=== PATIENT | female | born 2005 | race Caucasian/White ===

== ENCOUNTER 2023-03-22 16:59 | Inpatient (IN) | payer OTHER, SELFPAY ==
[2023-03-22] VITALS (48 sets, daily range): BP systolic 95–117; BP diastolic 53–89; PULSE 55–95; RESP 14–16; TEMP 36.3–36.7; O2SAT 98–100; BMI 25.9
[2023-03-22] MEDS: LACTATED RINGERS 1,000 ML 125 ML IV CONT (18:08)
[2023-03-22 18:09] LABS: Basophils Percent Auto 0.3 % (0.2-1.2); Eosinophils Percent Auto 0.3 % (0-4.4); Hematocrit 39.7 % (37.0-47.0); Hemoglobin 13.3 g/dL (12.0-15.0); Immature Granulocyte Absolute 0.09 K/mm3 (0.00-0.031); Immature Granulocyte Percent A 0.8 % (0-0.5); Lymphocytes Absolute Auto 3.06 K/mm3 (0.9-3.2); Lymphocytes Percent Auto 25.6 % (18.3-44.2); Mean Corpuscular HGB Conc 33.5 g/dl (32-36); Mean Corpuscular Hemoglobin 29.1 pg (26-34); Mean Corpuscular Volume 86.9 fl (80-100); Mean Platelet Volume 10.5 fl (7.4-10.4); Monocytes Absolute Auto 0.5 K/mm3 (0.1-0.6); Neutrophils Absolute Auto 8.2 K/mm3 (1.3-6.7); Platelet Count Result 176 k/mm3 (150-375); Red Blood Count 4.57 M/mm3 (4.2-5.4); Red Cell Distribution Width 13.9 % (11.5-14.5); White Blood Count 11.9 K/mm3 (4.5-10.0)
[2023-03-22] MEDS: OXYTOCIN 30 UNITS/NS 500 ML 30 UNITS/500 ML BAG 6 UNITS IV CONT (18:09)
--- NOTE | 2023-03-22 18:11 | LDADM ---
This patient, Danae Wahl March, was admitted to Labor/Delivery/Recovery 104 on 03/22/23 at 16:59. Plans for labor, pain management and were discussed with patient. Patient/family oriented to hospital policies and general routines including ID bracelet, bed and alarms, visiting hours, pain management, procedures, bathroom and other care routines, personal items, smoking policy, room service/diet and guest tray routines, security routines, and visiting hours. Patient/Family are encouraged to report perceived risks to care and to ask questions if they do not understand what they are told or what they should do. See OBIX for further documentation.
--- NOTE | 2023-03-22 19:43 | PM.IMHP ---
H&P: HPI History of Present Illness Date/Time: 03/22/23 19:43 Chief Complaint: SROM Narrative: Danae is a 17yo G1 at 36.2 who presented with SROM. GBS unknown. complicated by anxiety and depression, no meds and MJ use earlier in . 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 On my exam, 4cm, with septum going up to the cervix, cervix 4cm, footling breech, confirmed with US. Review of Systems Review of Systems: All systems reviewed & are unremarkable except as noted in HPI and below PMFSH Family History Family History (Updated 03/21/23 @ 13:41 by Talya Germain RN) Other Patient denies significant medical history Social History Social History Smoking status: Never smoker Substance use: never Lack of Transportation: No Lack of Food: Never True Current Housing: I Have Housing Concerned About Future Housing: No Difficulty Paying Gas/Electric Bills: No Difficulty Paying for Meds: No Currently Unemployed: YES Education: Grade School Difficulty w/ Childcare or Family Care: No Spiritual care concerns: No Meds Home Medications and Allergies Home Medications Medication Instructions Recorded Confirmed Type prenat.vits,ester,cwm-vdqm-ededh 1 tablet PO DAILY 03/21/23 03/21/23 History Allergies Allergy/AdvReac Type Severity Reaction Status Date / Time No Known Allergies Allergy Unknown Unverified 06/29/10 07:43 Vital Signs Vital Signs - 24 hr 03/22/23 18:10 03/22/23 18:00 03/22/23 18:38 Temperature 97.9 F Pulse Rate 86 Blood Pressure 112/66 Oxygen Delivery Room Air 03/22/23 19:30 Temperature Pulse Rate 95 Blood Pressure 117/71 Oxygen Delivery Exam Const: General: no acute distress Resp: Effort & Inspection: normal respiratory effort Auscultation: clear to auscultation bilaterally Cardio: Rate: regular rate Rhythm: regular rhythm GI: GI Palp: Yes Soft to palpation Extrem: General: normal to inspection H&P: Results Labs Labs: Short CBC 03/22/23 Range/Units 17:56 WBC 11.9 H (4.5-10.0) K/mm3 Hgb 13.3 (12.0-15.0) g/dL Hct 39.7 (37.0-47.0) % Plt Count 176 (150-375) k/mm3 Assessment and Plan Assessment and plan (1) SROM (spontaneous rupture of membranes): Status: Acute (2) Longitudinal vaginal septum: Code(s): Q52.129 - Other and unspecified longitudinal vaginal septum Status: Acute (3) Footling breech presentation: Code(s): O32.8XX0 - Maternal care for other malpresentation of fetus, not applicable or unspecified Status: Acute Plan FHT category 1 SROM, GBS unknown discussed vaginal septum since footling breech, need to proceed with CS. Discussed RBA, consented, questions answered. Will proceed dayrl. Ancef and erythromycin Anesthesia notified per RN
--- NOTE | 2023-03-22 19:48 | WPDHPUPDATE1 ---
History and Physical Update Update Date/Time: 03/22/23 19:48 History and Physical has been reviewed, including an updated exam of the patient. There are NO changes in the patient's condition. Risks, benefits, and alternatives have been discussed and questions answered. Patient agrees to proceed with procedure.
--- NOTE | 2023-03-22 20:11 | WPDANESEPPF ---
Anes - Initial Pre Proc Eval Procedure: Operation Date: 03/22/23 19:50 Proposed Procedures p Section - Nikkie Oliva MD Date/Time: 03/22/23 20:11 Surgeon: Nikkie Oliva MD Pre Op Diagnosis: Labor Patient Data Age: 17 Gender: F Height: 1.6 m Weight: 66.5 kg Last Vital Signs Temp 36.6 C 03/22/23 18:00 Pulse 95 03/22/23 19:30 BP 117/71 03/22/23 19:30 O2 Del Method Room Air 03/22/23 18:10 Allergies Allergy/AdvReac Type Severity Reaction Status Date / Time No Known Allergies Allergy Unknown Unverified 06/29/10 07:43 Home Medications Medication Instructions Recorded Confirmed Type prenat.vits,ester,bud-esql-tlyal 1 tablet PO DAILY 03/21/23 03/21/23 History Laboratory Tests 03/22/23 03/22/23 03/22/23 17:56 17:56 17:56 WBC 11.9 K/mm3 H K/mm3 (4.5-10.0) RBC 4.57 M/mm3 M/mm3 (4.2-5.4) Hgb 13.3 g/dL g/dL (12.0-15.0) Hct 39.7 % % (37.0-47.0) MCV 86.9 fl fl (80-100) MCH 29.1 pg pg (26-34) MCHC 33.5 g/dl g/dl (32-36) RDW 13.9 % % (11.5-14.5) Plt Count 176 k/mm3 k/mm3 (150-375) MPV 10.5 fl H fl (7.4-10.4) Immature Gran % (Auto) 0.8 % H % (0-0.5) Neut % (Auto) 69.0 % % (45.5-73.1) Lymph % (Auto) 25.6 % % (18.3-44.2) [place] % (Auto) 4.0 % % (2.6-8.5) Eos % (Auto) 0.3 % % (0-4.4) Baso % (Auto) 0.3 % % (0.2-1.2) Lymph # (Auto) 3.06 K/mm3 K/mm3 (0.9-3.2) [place] # (Auto) 0.5 K/mm3 K/mm3 (0.1-0.6) Eos # (Auto) 0.0 K/mm3 K/mm3 (0-0.3) Baso # (Auto) 0.0 K/mm3 K/mm3 (0.0-0.1) Abs Immat Gran (auto) 0.09 K/mm3 H K/mm3 (0.00-0.031) Absolute Neuts (auto) 8.2 K/mm3 H K/mm3 (1.3-6.7) Absolute Nucleated RBC 0.0 K/mm3 K/mm3 (0.0-0.012) Nucleated RBC % 0.0 % % (0.0-0.2) RPR Pending Blood Type O Positive Antibody Screen Negative Patient hx anesthesia problems: none Family hx anesthesia problems: none Results Review: All pre-operative results and documents have been reviewed as part of the pre-operative evaluation. [facility] Past Medical History Medical History (Updated 03/22/23 @ 20:12 by Hayden Archer MD) Asthma Family History Family History Other Patient denies significant medical history Social History Social History Smoking status: Never smoker Substance use: never Lack of Transportation: No Lack of Food: Never True Current Housing: I Have Housing Concerned About Future Housing: No Difficulty Paying Gas/Electric Bills: No Difficulty Paying for Meds: No Currently Unemployed: YES Education: Grade School Difficulty w/ Childcare or Family Care: No Spiritual care concerns: No Anes - Eval Final PreProcedure Day of Procedure 03/22/23 20:11 Patient weight: overweight Heart: regular rate and rhythm Lungs: clear to auscultation Airway: Mallampati scale class II Neurological: alert and oriented Last oral intake: 2 hours (clears) ASA classification: II Emergent: yes Anesthetic plan: proceed Anesthesia type and monitoring: regional spinal and standard monitoring Results Review: All pre-operative results and documents have been reviewed as part of the pre-operative evaluation. Informed Consent: The patient's anesthetic plan and its attendant risks and benefits were discussed with the patient/family/POA. Questions were solicited and answers provided to the satisfaction of the patient/family/POA.
--- NOTE | 2023-03-22 21:02 | PM.OBPRVD ---
OB - Delivery Note Procedure Delivery date: 03/22/23 Procedure: Procedures Operation Date: 03/22/23 19:50 <No data on this case meets the specified criteria> Primary low transverse section Events: Breech Presentation and Other (longitudinal vaginal septum) Route of delivery: Specimen: Yes (placenta) Quantitative Blood Loss (ml): 505 Anesthesia type: Spinal Disposition: Floor Complications: none Narrative: The patient was taken to the OR and received spinal anesthesia. She was placed in dorsal supine position with left lateral tilt. SCDs and wilson were placed. She was prepped and draped in the normal sterile fashion. A Pfannensteil skin incision was made and carried through to the underlying layer of fascia. The fascia was incised in the midline and then extended laterally using Ca scissors. The muscles were in the midline and the peritoneum was entered bluntly. The peritoneal incision was extended inferiorly and superiorly with care to avoid the bladder. The bladder blade was then inserted, the vesicouterine peritoneum was grasped, incised with Metzenbaum scissors, and a bladder flap created. The bladder blade was reinserted. A low transverse uterine incision was made with a scalpel and extended bluntly. No fluid was noted at this time. One foot was presenting, but the breech was able to be brought to the incision and the baby was delivered easily in breech presentation. The baby's oropharynx was suctioned. The cord was clamped and cut and the infant was handed off. Cord blood was obtained and the placenta was then removed manually. The uterus was exteriorized. A moist lap sponge was used to curette the endometrium. The uterine incision was then closed with two layers of 0-Vicryl in a running, locking fashion. Good hemostasis was noted. The posterior cul de sac was irrigated with normal saline and cleared of all clot and debris. The uterus was returned to the abdomen. Both lateral gutters were then irrigated. The rectus muscles were inspected and found to be hemostatic. The fascia was reapproximated using 0-Vicryl in running fashion. The subcutaneous tissue was irrigated with normal saline and made hemostatic with Bovie electrocautery. The skin was then closed with absorbable jamar. Steri strips and a bandage were applied. The uterus was evacuated. The patient tolerated the procedure very well. All counts were correct. She was taken to the recovery room in good condition. Baby Date of : 03/22/23 Time of : 20:21 Weeks of gestation at delivery: 36 gender: Male Weight (pounds): 5 Weight (ounces): 15 presentation: breech (single footling) Placenta delivery description: Manual Removal Cord Vessel Description: 3 Vessels, Nuchal Cord and Clamped/Cut score one minute: 5 score five minutes: 9
[2023-03-22] MEDS: OXYTOCIN 30 UNITS/NS 500 ML 30 UNITS/500 ML BAG 125 UNITS IV CONT (22:17)
[2023-03-23] VITALS (7 sets, daily range): BP systolic 88–101; BP diastolic 47–63; PULSE 61–86; RESP 16; TEMP 36.7–37.4; O2SAT 97–98
[2023-03-23] MEDS: HYDROcodone/acetaminophen (*CRX) 5-325 MG TABLET 1 TAB PO ×4 (00:05→22:55)
[2023-03-23] MEDS: KETOROLAC 30 MG/ML VIAL (*BKC) IV PUSH (00:05)
[2023-03-23] MEDS: DEXTROSE 5%/0.45% SOD CHL 1,000 ML 125 ML IV CONT (01:49)
[2023-03-23 02:35] LABS: Basophils Percent Auto 0.2 % (0.2-1.2); Eosinophils Percent Auto 0.1 % (0-4.4); Hematocrit 30.7 % (37.0-47.0); Immature Granulocyte Absolute 0.06 K/mm3 (0.00-0.031); Immature Granulocyte Percent A 0.4 % (0-0.5); Lymphocytes Absolute Auto 2.17 K/mm3 (0.9-3.2); Mean Corpuscular HGB Conc 32.6 g/dl (32-36); Mean Corpuscular Hemoglobin 28.5 pg (26-34); Mean Corpuscular Volume 87.5 fl (80-100); Mean Platelet Volume 10.5 fl (7.4-10.4); Monocytes Absolute Auto 0.4 K/mm3 (0.1-0.6); Neutrophils Absolute Auto 10.9 K/mm3 (1.3-6.7); Neutrophils Percent Auto 80.3 % (45.5-73.1); Platelet Count Result 143 k/mm3 (150-375); Red Blood Count 3.51 M/mm3 (4.2-5.4); Red Cell Distribution Width 13.6 % (11.5-14.5); White Blood Count 13.5 K/mm3 (4.5-10.0)
--- NOTE | 2023-03-23 07:19 | P.PNOB_ITS ---
OB - PN: Subj Subjective Date/time seen: 03/23/23 07:19 Patient comments: no complaints and pain well controlled feeding status: breast and bottle feeding Narrative: POD 1 from primary CS. Doing well. Normal lochia. Tolerating PO. Alexander still in. OB - PN: Obj Data Labs 03/23/23 02:22 Labs: Laboratory Results - last 24 hr 03/22/23 03/23/23 17:56 02:22 WBC 11.9 H 13.5 H RBC 4.57 3.51 L Hgb 13.3 10.0 L D Hct 39.7 30.7 L MCV 86.9 87.5 MCH 29.1 28.5 MCHC 33.5 32.6 RDW 13.9 13.6 Plt Count 176 143 L MPV 10.5 H 10.5 H Immature Gran % (Auto) 0.8 H 0.4 Neut % (Auto) 69.0 80.3 H Lymph % (Auto) 25.6 16.0 L [place] % (Auto) 4.0 3.0 Eos % (Auto) 0.3 0.1 Baso % (Auto) 0.3 0.2 Lymph # (Auto) 3.06 2.17 [place] # (Auto) 0.5 0.4 Eos # (Auto) 0.0 0.0 Baso # (Auto) 0.0 0.0 Abs Immat Gran (auto) 0.09 H 0.06 H Absolute Neuts (auto) 8.2 H 10.9 H Absolute Nucleated RBC 0.0 0.0 Nucleated RBC % 0.0 0.0 Blood Type O Positive Antibody Screen Negative OB - PN A/P Plan day: 1 Plan: routine care Time Spent With Patient Time: Total time spent is greater than 50% in coordination of care (as documented) at patient's floor/unit and/or counseling patient: Exam Narrative: NAD abdomen soft, appropriately tender, incision bandaged Extremities nontender with 1+ edema
[2023-03-23] MEDS: DOCUSATE SODIUM 100 MG CAPSULE PO ×2 (10:25→15:40)
--- NOTE | 2023-03-23 10:29 | PC.NURSE ---
[id number] Introductions were made, then consulted with patient to assess needs related to after a request from the Primary RN. Mother led the conversation with her?plans to feed?her and the?experience so far. Resources provided for inpatient and outpatient services with the feeding sheet, mom/baby guide and name written on the white board. Mother voiced understanding of information and consents to assistance as her ([id number] wks) is sleeping skin to skin. Mother works well with her infant with encouragement and education. Encouraged understanding of the benefits of skin to skin (demonstrating unwrapping and placing upright on her chest), stimulating with massage touch, changing positions to encourage wakefulness, how to watch for early feeding cues, responsive feeding,hand expression, feeding on demand (aiming for 8-12 times in 24 hours, about every 2-3 hours), milk production, building/maintaining a milk supply, duration of feeding, signs of adequate intake/output and how to record on the feeding sheet. Discussed the late 's behavior and encouraged skin to skin, massage touch, with being assertive with active . Demonstrated 20 min of stimulating with position change, changing the infant's diaper, massage touch, and finger feeding hand expressed colostrum, then we reviewed positioning and ear, shoulder, hip alignment, supporting the breast to facilitate a deep latch, asymmetrical latch (off-center), leading with the chin with a big, open, wide gape and body close to mother. A few attempts were made, then infant latched optimally to the right breast in football position. Education given to mother of how to visualize suck/swallow ratios and listen for drinking at the breast. Father of baby was included on ways to encourage, support, and stimulate for active . Infant was able to maintain latch without discomfort to mother. Nipple care reviewed with optimal latch and good positioning. Reminding mother of comfort measures of healing with a warm and wet washcloth to rinse breast, then leave open to air-dry as needed. Reviewed good handwashing when or touching the breast/nipples to prevent infection. Resources used to facilitate learning were used with the tool, mom and baby guide. Mother voiced understanding of skin to skin, stimulating with massage touch, responsive feedings, hand expressed colostrum, talking to infant to encourage if it has been 2 -2.5 hours since the start of the last , to call if does not latch, or if there is discomfort with . Resources provided for inpatient/outpatient with the office number on the feeding sheet, name on the white board using the call light, and the mom/baby guide. Parents voiced understanding of information, demonstrated learning and will call if there is a request for assistance. Reported to the primary RN.
--- NOTE | 2023-03-23 10:47 | WPDANLDPN2 ---
Anes-Prog Note L&D Date/Time: 03/23/23 10:47 Comfortable throughout: section Neuraxial method: spinal Epidural/Spinal procedure site: clean & non-tender Neuro status: Neuro function grossly intact. wilson in place, will be taken out later today. Cardiovascular status: normal Respiratory status: normal Airway patency: baseline Mental status: baseline Post-Op hydration status: normal (wilson in place) Vital Signs: Last Vital Signs Temp 37.4 C 03/23/23 09:35 Pulse 76 03/23/23 09:35 Resp 16 03/23/23 09:35 BP 101/54 L 03/23/23 09:35 Pulse Ox 98 03/23/23 09:35 O2 Del Method Room Air 03/22/23 23:04 Pain score (VAS): 3 I/O: Intake & Output 03/22/23 03/23/23 03/23/23 23:59 07:59 15:59 Intake Total 440 Output Total 225 450 Balance -225 -10 Post-procedural complaints: none Patient feedback: Patient satisfied with anesthetic care.
--- NOTE | 2023-03-23 10:49 | WPDANLDNPN2 ---
Anes-Prog Note L&D-Neuraxial Date/Time: 03/23/23 10:49 Neuraxial medications: intrathecal PF morphine Opiod-related complaints: none Patient feedback: Patient satisfied with post-operative pain management.
[2023-03-23 13:48] LABS: Rapid Plasma Reagin Non-Reactive (NonReactive)
[2023-03-23] MEDS: MULTIVIT/MIN/PREN/FOL AC/IRON TABLET 1 TAB PO (15:40)
--- NOTE | 2023-03-23 15:48 | PC.NURSE ---
[id number] Infant's blood sugar was checked prior to session and resulted at 48mg/dl. Reviewed earlier learning and attempted to the left and right breast. Drops of hand expressed colostrum was finger fed to . Infant opens mouth and holds the mouth open or the nipple in the mouth the majority of the time. On the right breast latches optimally, takes a few suck, then holds the breast in the mouth. Reported to the primary RN that is not demonstrating effective at this time.
--- NOTE | 2023-03-23 15:52 | PC.NURSE ---
[id number] Blood sugar checked prior to session and resulted at 79mg/dl. Mother works well with her infant with encouragement. Reviewed working with infant, supporting breast and how to protect the nipples with an optimal deep latch, good positioning, and good hand washing. Several attempts were made to latch infant to the left breast. opens wide, then holds the nipple in the mouth. Reviewed positioning and alignment, supporting breast, off-centered (asymmetrical latch) and leading with the chin with big, open, wide gape. Infant latched optimally to the right breast in football position. Education given to mother of how to visualize suck/swallow ratios and listen for drinking at the breast. was able to maintain latch without discomfort to mother. Nipple care reviewed with optimal latch, good positioning and using clean hands when feeding her infant and touching her breast. Resources used to facilitate learning were used from the tool, mom and baby guide. Mother voiced understanding of the education shared, to call for assistance if the does not latch or if there is discomfort with . Reviewed the consult with Primary RN assessing the effective on the right breast.
[2023-03-23] MEDS: IBUPROFEN 600 MG TABLET PO (22:55)
[2023-03-24] MEDS: HYDROcodone/acetaminophen (*CRX) 5-325 MG TABLET 1 TAB PO ×3 (05:25→20:07)
[2023-03-24] MEDS: IBUPROFEN 600 MG TABLET PO ×3 (05:25→20:07)
[2023-03-24 07:30] VITALS: BP 97/50; PULSE 71; RESP 18; TEMP 36.7; O2SAT 98
--- NOTE | 2023-03-24 08:14 | PM.OBPNVD ---
OB - PN: Subj Subjective Date/time seen: 03/24/23 08:14 Patient comments: no complaints, pain well controlled, tolerating diet and flatus present OB - PN: Obj Data Labs 03/23/23 02:22 Labs: Laboratory Results - last 24 hr 03/22/23 17:56 RPR Non-reactive OB - PN A/P Plan day: 1 Comments: Post Op LTCS - no problems, routine recovery Time Spent With Patient Time: Total time spent is greater than 50% in coordination of care (as documented) at patient's floor/unit and/or counseling patient: Exam Const: General: cooperative, healthy appearing, comfortable and no acute distress Resp: Auscultation: no crackles, no rales, no rhonchi and no wheezes Cardio: Rhythm: regular rhythm Heart sounds: no click and no murmurs GI: Inspection: non-distended Auscultation: normal bowel sounds Extrem: General: normal to inspection, no pedal edema and no calf tenderness
[2023-03-24] MEDS: DOCUSATE SODIUM 100 MG CAPSULE PO ×2 (08:53→17:20)
[2023-03-24] MEDS: MULTIVIT/MIN/PREN/FOL AC/IRON TABLET 1 TAB PO (08:53)
[2023-03-24 20:00] VITALS: BP 101/61; PULSE 91; RESP 16; TEMP 36.6
[2023-03-25] MEDS: HYDROcodone/acetaminophen (*CRX) 5-325 MG TABLET 1 TAB PO ×2 (06:51→17:38)
[2023-03-25 07:00] VITALS: BP 118/70; PULSE 76; RESP 16; TEMP 37.1; O2SAT 94
--- NOTE | 2023-03-25 07:57 | PM.OBPNVD ---
OB - PN: Subj Subjective Date/time seen: 03/25/23 07:57 Patient comments: no complaints and pain well controlled baby status: doing well Narrative: Ped wants baby to stay re weight loss. OB - PN: Obj Data Labs 03/23/23 02:22 OB - PN A/P Plan day: 3 Plan: routine care Comments: Stay per pediatricians request Doing well circumcision done after consented. Time Spent With Patient Time: Total time spent is greater than 50% in coordination of care (as documented) at patient's floor/unit and/or counseling patient: Exam Narrative: NAD abdomen soft, appropriately tender, incision CDI Extremities nontender with 1+ edema
[2023-03-25] MEDS: MULTIVIT/MIN/PREN/FOL AC/IRON TABLET 1 TAB PO (09:20)
[2023-03-25] MEDS: DOCUSATE SODIUM 100 MG CAPSULE PO ×2 (09:20→17:37)
--- NOTE | 2023-03-25 14:25 | PC.NURSE ---
[phone] Consulted with patient to assess needs related to after a request to practice improving . Mother led conversation with her experience with feeding baby so far. Mother works well with her infant with encouragement. Reviewed working with infant, supporting breast and how to protect the nipples with an optimal deep latch, good positioning, and good hand washing. Reviewed the risks and benefits of supplementing with formula bottles and how to protect her milk supply. Encouraged understanding the benefits of skin to skin, responding to feeding cues, frequencies of feeding 8-12 times in 24 hours (approximately 2-3 hours), duration of feedings, milk production, intake/output feeding sheet and signs of adequate intake encouraging swallowing at the breast. Reviewed positioning and alignment, supporting breast, off-centered (asymmetrical latch) and leading with the chin with big, open, wide gape. Infant latched optimally to the right breast in football position. Education given to mother of how to visualize suck/swallow ratios and listen for drinking at the breast. Infant was able to maintain latch without discomfort to mother. Nipple care reviewed with optimal latch, good positioning and using clean hands when feeding her infant and touching her breast. Resources used to facilitate learning were used from the tool, mom and baby guide. Mother voiced understanding of the education shared, to call for assistance if the infant does not latch or if there is discomfort with . Reported to the primary RN. [phone] Consulted with patient to assess needs related to after a request for assistance. Mother led conversation with her experience with feeding baby so far. Mother works well with her with encouragement. Reviewed working with infant, supporting breast and how to protect the nipples with an optimal deep latch, good positioning, and good hand washing. Encouraged understanding the benefits of skin to skin, responding to feeding cues, frequencies of feeding 8-12 times in 24 hours (approximately 2-3 hours), duration of feedings, milk production, intake/output feeding sheet and signs of adequate intake encouraging swallowing at the breast. Reviewed positioning and alignment, supporting breast, off-centered (asymmetrical latch) and leading with the chin with big, open, wide gape. Attempted to latch infant to the left breast several times. Infant would suck 1-2 times, then detach. Nipple is dimpled and doesn't express colostrum with hand expression. Encourage infant to wake, feeding cues were visualized, then infant latched optimally to the right breast in cross cradle position with a towel rolled up under her breast. Education given to mother of how to visualize suck/swallow ratios and listen for drinking at the breast. was able to maintain latch without discomfort to mother. Nipple care reviewed with optimal latch, good positioning and using clean hands when feeding her infant and touching her breast. Resources used to facilitate learning were used from the tool, mom and baby guide. Mother voiced understanding of the education shared, to call for assistance if the infant does not latch or if there is discomfort with . Reported to the primary RN.
[2023-03-25] MEDS: IBUPROFEN 600 MG TABLET PO (17:37)
[2023-03-25 20:00] VITALS: BP 104/49; PULSE 93; RESP 16; O2SAT 98
[2023-03-26] MEDS: HYDROcodone/acetaminophen (*CRX) 5-325 MG TABLET 1 TAB PO (04:50)
[2023-03-26] MEDS: IBUPROFEN 600 MG TABLET PO (04:50)
[2023-03-26 07:50] VITALS: BP 102/54; PULSE 78; RESP 14; TEMP 36.2; O2SAT 97
[2023-03-26] MEDS: MULTIVIT/MIN/PREN/FOL AC/IRON TABLET 1 TAB PO (13:09)
[2023-03-26] MEDS: DOCUSATE SODIUM 100 MG CAPSULE PO ×2 (13:10→16:53)
--- NOTE | 2023-03-26 16:12 | PM.OBPNVD ---
OB - PN: Subj Subjective Date/time seen: 03/26/23 16:12 Patient comments: no complaints, pain well controlled, incisional pain, tolerating diet and flatus present OB - PN: Obj Data Labs 03/23/23 02:22 OB - PN A/P Plan day: 3 Plan: routine care, discharge home and other Comments: Incision check in one week. Given precautions Time Spent With Patient Time: Total time spent is greater than 50% in coordination of care (as documented) at patient's floor/unit and/or counseling patient: Exam Const: General: comfortable, no acute distress and alert Resp: Effort & Inspection: normal respiratory effort Auscultation: no crackles, no rales and no rhonchi Cardio: Rate: regular rate Heart sounds: no click, no murmurs and no rubs GI: Inspection: non-distended GI Palp: No Tenderness to palpation present (GI) Auscultation: normal bowel sounds Other: Incision - CDI Extrem: General: normal to inspection, no pedal edema and no calf tenderness
--- NOTE | 2023-03-26 16:13 | PM.OBDSVD ---
DS: Admitting Diagnosis Discharge Date 03/26/23 Admitting Diagnosis term gestation OB - DS: Summary OB Procedures : None OB Procedures Intrapartum: Spontaneous Vag Delivery OB Procedures: : None Peripartum Data Procedures: Procedures Operation Date: 03/22/23 19:50 Actual Procedure Side Surgeon p Section Nikkie Oliva MD Time Spent with Patient Time attestation: Total time spent providing and/or coordinating discharge services: Discharge Plan Discharge Discharging Clinician: Jairon Mendez Patient Disposition: Home, Self-Care Activity: pelvic rest Diet: regular Patient Instructions: Antibiotic Form Stand Alone Forms: General Discharge Information Follow-up/Referrals: Jairon Mendez MD [Physician] - Discharge Medications: New hydrocodone-acetaminophen 5-325 mg tablet 1 - 2 tablet PO Q6H PRN (Reason: pain) Qty: 25 0RF Continued #2 Tablet 1 tablet PO DAILY Date of admission: 03/22/23 16:59 Primary Care Provider: StoneyHarleen Admitting Provider: Nikkie Oliva Attending physician on admission: Nikkie Oliva Condition: Stable
[2023-03-28 07:58] VITALS: BP 118/77; PULSE 72; RESP 16; TEMP 36.8; O2SAT 99
--- NOTE | 2023-04-18 12:29 | PM.OBTRLD ---
OB - Triage/Final Diagnosis Visit Information Comments/Additional reasons for admission: I have assessed the risk for this patient, Danae Kay, and determined that she would benefit from observation care. Evaluation Laboratory results: Laboratory Tests 03/22/23 03/23/23 17:56 02:22 WBC 11.9 H 13.5 H RBC 4.57 3.51 L Hgb 13.3 10.0 L D Hct 39.7 30.7 L MCV 86.9 87.5 MCH 29.1 28.5 MCHC 33.5 32.6 RDW 13.9 13.6 Plt Count 176 143 L MPV 10.5 H 10.5 H Immature Gran % (Auto) 0.8 H 0.4 Neut % (Auto) 69.0 80.3 H Lymph % (Auto) 25.6 16.0 L [place] % (Auto) 4.0 3.0 Eos % (Auto) 0.3 0.1 Baso % (Auto) 0.3 0.2 Lymph # (Auto) 3.06 2.17 [place] # (Auto) 0.5 0.4 Eos # (Auto) 0.0 0.0 Baso # (Auto) 0.0 0.0 Abs Immat Gran (auto) 0.09 H 0.06 H Absolute Neuts (auto) 8.2 H 10.9 H Absolute Nucleated RBC 0.0 0.0 Nucleated RBC % 0.0 0.0 RPR Non-reactive Blood Type O Positive Antibody Screen Negative Final Diagnosis (1) Post-op pain: Code(s): G89.18 - Other acute postprocedural pain Status: Acute
== END 2023-03-26 17:30 | disposition home or self-care (01) | DRG 540 ==
LOC: ANHOB2 03-26 17:02 → ANHLDR 03-28 13:35 → ANHOB2 03-28 13:35
PROVIDERS: Admitting Provider Obstetrics & Gynecology; PCP Nurse Practitioner Family; Visit Provider Obstetrics & Gynecology
PROC: 10D00Z1 Extraction of Products of Conception, Low, Open Approach (ICD-10-PCS; CPT 59514; principal; 2023-03-22 19:50)
DX: O32.8XX0 Maternal care for other malpresentation of fetus, not applicable or unspecified (principal); F41.9 Anxiety disorder, unspecified; O99.344 Other mental disorders complicating childbirth; O69.81X0 Labor and delivery complicated by cord around neck, without compression, not applicable or unspecified; Q52.129 Other and unspecified longitudinal vaginal septum; Z3A.36 36 weeks gestation of pregnancy; Z37.0 Single live birth
CPT/HCPCS: 36415; 84112; 85025; 86592; 86850; 86900; 86901; A9270; J1200; J1885; J1940; J2274; J2370; J2405; J2590; J7120

== ENCOUNTER 2024-08-10 10:32 | Inpatient (IN) | payer OTHER, SELFPAY ==
[2024-08-10] VITALS (78 sets, daily range): BP systolic 75–131; BP diastolic 43–82; PULSE 48–105; RESP 12–20; TEMP 36.1–36.9; O2SAT 94–100; BMI 27.3
[2024-08-10] MEDS: LACTATED RINGERS 1,000 ML 999 ML IV CONT (12:00)
[2024-08-10 12:45] LABS: Add Urine Microscopic? YES; Appearance Urine Cloudy (Clear); Bacteria Urine 1+ /hpf; Bilirubin Urine Negative (Negative); Blood Urine 3+ (Negative); Color Urine Dark Yellow (Yellow); Glucose Urine UA Negative (Negative); Ketones Urine Trace mg/dL (Negative); Leukocyte Esterase Ur 1+ LEU/UL (Negative); Need Manual Microscopic Reviewed; Nitrate Urine Negative (Negative); Protein Urine Trace mg/dL (Negative); RBC Urine 0-2 /hpf (0-2); Specific Grav Ur 1.028 (1.001-1.035); Squamous Epithelial Cell Urine Moderate /hpf (Few); pH Urine 5.5 (5.0-9.0)
[2024-08-10] MEDS: LACTATED RINGERS 1,000 ML 125 ML IV CONT ×3 (12:57→16:41)
[2024-08-10 14:43] LABS: Basophils Absolute Auto 0.1 K/mm3 (0.0-0.1); Basophils Percent Auto 0.3 % (0.2-1.2); Eosinophils Percent Auto 0.1 % (0-4.4); Hematocrit 37.1 % (37.0-47.0); Hemoglobin 11.5 g/dL (12.0-15.0); Immature Granulocyte Absolute 0.11 K/mm3 (0.00-0.031); Immature Granulocyte Percent A 0.8 % (0-0.5); Lymphocytes Absolute Auto 1.95 K/mm3 (0.9-3.2); Lymphocytes Percent Auto 13.3 % (18.3-44.2); Mean Corpuscular Hemoglobin 25.8 pg (26-34); Mean Corpuscular Volume 83.4 fl (80-100); Mean Platelet Volume 11.2 fl (7.4-10.4); Monocytes Absolute Auto 0.4 K/mm3 (0.1-0.6); Monocytes Percent Auto 2.7 % (2.6-8.5); Neutrophils Absolute Auto 12.1 K/mm3 (1.3-6.7); Neutrophils Percent Auto 82.8 % (45.5-73.1); Platelet Count Result 257 k/mm3 (150-375); Red Blood Count 4.45 M/mm3 (4.2-5.4); Red Cell Distribution Width 13.8 % (11.5-14.5); White Blood Count 14.6 K/mm3 (4.5-10.0)
[2024-08-10] MEDS: ACETAMINOPHEN 500 MG TABLET 1000 MG PO (15:02)
--- NOTE | 2024-08-10 15:09 | PM.IMHP ---
H&P: HPI History of Present Illness Date/Time: 08/10/24 15:09 Chief Complaint: Term , labor Narrative: 19-year-old multiparous female with prior delivery presented in labor. We are going to proceed with repeat . Infant is breech The patient understands the details of the procedure. The procedure has been explained in detail. She understands the risks. She understands that injuries may occur that result in hospitalization, more surgery, and severe illness. She understands risk of hemorrhage and infection. She denies any chest pain or shortness of breath. She denies any nausea, vomiting, fever, chills. Review of Systems Review of Systems: All systems reviewed & are unremarkable except as noted in HPI and below Constitutional: Constitutional: Denies chills, Denies fatigue, Denies fever(s) and Denies weakness Eyes: Eyes: Denies blurry vision, Denies change in vision, Denies loss of peripheral vision, Denies loss of vision, Denies other visual disturbances and Denies eye pain ENT: Denies vertigo, Denies dizziness, Denies hearing loss, Denies mouth pain, Denies nasal obstruction, Denies neck mass and Denies neck pain Cardiovascular: Cardiovascular: Denies chest pain, Denies diaphoresis, Denies syncope, Denies leg edema and Denies dyspnea Respiratory: Respiratory: Denies chest congestion, Denies cough, Denies hemoptysis, Denies dyspnea and Denies wheezing Gastrointestinal: Gastrointestinal: Denies abdominal pain, Denies constipation, Denies diarrhea, Denies nausea and Denies vomiting Genitourinary: Genitourinary: Denies hematuria, Denies change in libido, Denies nocturia, Denies genital lesions, Denies flank pain and Denies urinary urgency Musculoskeletal: Musculoskeletal: Denies abnormal gait, Denies back pain, Denies myalgias, Denies arthralgias, Denies joint swelling, Denies muscle weakness and Denies neck pain Integumentary/Breasts: Skin/Breast: Denies swelling, Denies breast pain, Denies breast mass, Denies dry skin, Denies nipple discharge, Denies unusual bruising and Denies jaundice Neurologic: Denies Neuro-related abnormal movements, Denies Abnormal speech present, Denies abnormal gait, Denies behavioral changes, Denies confusion, Denies vertigo, Denies dizziness, Denies syncope, Denies loss of vision, Denies memory loss, Denies convulsions and Denies weakness Psychiatric: Psychiatric: Denies abnormal sleep pattern, Denies behavioral changes, Denies change in libido, Denies confusion, Denies depression, Denies anhedonia and Denies memory loss Endocrine: Endocrine: Reports no additional endocrine complaints, Denies change in libido and Denies fatigue Hematologic/Lymphatic: Hematologic/Lymphatic: Reports no additional hematologic/lymphatic complaints Allergic/Immunologic: Allergic/Immunologic: Reports no additional allergic/immunologic complaints and Denies wheezing PMFSH Past Medical History Medical History (Updated 08/10/24 @ 15:11 by Jarad Mendez MD) Asthma Family History Family History (Updated 08/10/24 @ 14:44 by Gabbie Godinez RN) Grandparent Congestive heart failure Diabetes mellitus Other Patient denies significant medical history Social History Social History Smoking status: Never smoker Substance use: never Do You Feel Safe in your Home?: Yes Lack of Transportation: No Lack of Food: Never True Current Housing: I Have Housing Concerned About Future Housing: Decline to Answer Difficulty Paying Gas/Electric Bills: Decline to Answer Difficulty Paying for Meds: Decline to Answer Currently Unemployed: Decline to Answer Education: Grade School Difficulty w/ Childcare or Family Care: No Spiritual care concerns: No Meds Home Medications and Allergies Home Medications Medication Instructions Recorded Confirmed Type prenat.vits,ester,[id number]-[id number] 1 tablet PO DAILY 03/21/23 08/10/24 History Allergies Allergy/AdvReac Type Se
--- NOTE | 2024-08-10 15:11 | WPDHPUPDATE1 ---
History and Physical Update Update Date/Time: 08/10/24 15:11 History and Physical has been reviewed, including an updated exam of the patient. There are NO changes in the patient's condition. Risks, benefits, and alternatives have been discussed and questions answered. Patient agrees to proceed with procedure.
--- NOTE | 2024-08-10 15:25 | WPDANESEPPF ---
Anes - Initial Pre Proc Eval Procedure: Operation Date: 08/10/24 15:30 Proposed Procedures p Repeat Section(Not Applicable) - Jarad Mendez MD Date/Time: 08/10/24 15:25 Surgeon: Jarad Mendez MD Pre Op Diagnosis: Contractions Patient Data Age: 19 Gender: F Height: 1.6 m Weight: 70 kg Last Vital Signs Temp 36.6 C 08/10/24 15:14 Pulse 61 08/10/24 15:22 BP 118/62 08/10/24 15:22 Pulse Ox 95 08/10/24 15:20 Allergies Allergy/AdvReac Type Severity Reaction Status Date / Time No Known Allergies Allergy Unknown Verified 08/10/24 14:41 Home Medications Medication Instructions Recorded Confirmed Type prenat.vits,ester,ftf-crfd-sohid 1 tablet PO DAILY 03/21/23 08/10/24 History Laboratory Tests 08/10/24 08/10/24 12:15 12:19 WBC 14.6 H K/mm3 (4.5-10.0) RBC 4.45 M/mm3 (4.2-5.4) Hgb 11.5 L g/dL (12.0-15.0) Hct 37.1 % (37.0-47.0) MCV 83.4 fl (80-100) MCH 25.8 L pg (26-34) MCHC 31.0 L g/dl (32-36) RDW 13.8 % (11.5-14.5) Plt Count 257 D k/mm3 (150-375) MPV 11.2 H fl (7.4-10.4) Immature Gran % (Auto) 0.8 H % (0-0.5) Neut % (Auto) 82.8 H % (45.5-73.1) Lymph % (Auto) 13.3 L % (18.3-44.2) [place] % (Auto) 2.7 % (2.6-8.5) Eos % (Auto) 0.1 % (0-4.4) Baso % (Auto) 0.3 % (0.2-1.2) Lymph # (Auto) 1.95 K/mm3 (0.9-3.2) [place] # (Auto) 0.4 K/mm3 (0.1-0.6) Eos # (Auto) 0.0 K/mm3 (0-0.3) Baso # (Auto) 0.1 K/mm3 (0.0-0.1) Abs Immat Gran (auto) 0.11 H K/mm3 (0.00-0.031) Absolute Neuts (auto) 12.1 H K/mm3 (1.3-6.7) Absolute Nucleated RBC 0.000 K/mm3 (0.0-0.012) Nucleated RBC % 0.0 % (0.0-0.2) Urine Color Dark yellow (Yellow) Urine Appearance Cloudy H (Clear) Urine pH 5.5 (5.0-9.0) Ur Specific [place] 1.028 (1.001-1.035) Urine Protein Trace mg/dL (Negative) Urine Glucose (UA) Negative mg/dL (Negative) Urine Ketones Trace H mg/dL (Negative) Ur Blood (Man) 3+ H (Negative) Urine Nitrate Negative (Negative) Urine Bilirubin Negative (Negative) Urine Urobilinogen 1.0 mg/dL (<2.0) Add Ur Microanalysis Reviewed Leukocyte Esterase Rfl 1+ H JUSTIN/UL (Negative) Urine RBC 0-2 /hpf (0-2) Urine WBC 11-20 H /hpf (0-3) Ur Squamous Epith Cells Moderate /hpf (Few) Urine Bacteria 1+ H /hpf Urine Casts 3-5 RPR Pending HIV 1&2 Ab/P24 Ag 4thGn Pending Blood Type O Positive Antibody Screen Negative Patient hx anesthesia problems: none Family hx anesthesia problems: none Results Review: All pre-operative results and documents have been reviewed as part of the pre-operative evaluation. [facility] Past Medical History Medical History (Updated 08/10/24 @ 15:11 by Jarad Mendez MD) Asthma Family History Family History (Updated 08/10/24 @ 14:44 by Gabbie Godinez RN) Grandparent Congestive heart failure Diabetes mellitus Other Patient denies significant medical history Social History Social History Smoking status: Never smoker Substance use: never Do You Feel Safe in your Home?: Yes Lack of Transportation: No Lack of Food: Never True Current Housing: I Have Housing Concerned About Future Housing: Decline to Answer Difficulty Paying Gas/Electric Bills: Decline to Answer Difficulty Paying for Meds: Decline to Answer Currently Unemployed: Decline to Answer Education: Grade School Difficulty w/ Childcare or Family Care: No Spiritual care concerns: No Anes - Eval Final PreProcedure Day of Procedure 08/10/24 15:25 Patient weight: obese Heart: regular rate and rhythm Lungs: clear to auscultation and normal air movement Airway: Mallampati scale
--- NOTE | 2024-08-10 15:29 | LDADM ---
This patient, Danae Wahl March, was admitted to Labor/Delivery/Recovery 120 on 08/10/24 at 14:31. Plans for labor, pain management and were discussed with patient. Patient/family oriented to hospital policies and general routines including ID bracelet, bed and alarms, visiting hours, pain management, procedures, bathroom and other care routines, personal items, smoking policy, room service/diet and guest tray routines, security routines, and visiting hours. Patient/Family are encouraged to report perceived risks to care and to ask questions if they do not understand what they are told or what they should do. See OBIX for further documentation.
[2024-08-10 15:30] LABS: HIV 1/2 Ab P24 Ag Result Negative (Negative)
[2024-08-10] MEDS: ONDANSETRON INJ 4 MG/2 ML VIAL IV PUSH ×2 (15:40→20:15)
[2024-08-10] MEDS: FAMOTIDINE 20 MG/2 ML VIAL IV PUSH (15:40)
[2024-08-10] MEDS: AZITHROMYCIN 500 MG/NS 250 ML 500 MG/250 ML BAG 250 MG IVPB (15:43)
[2024-08-10 16:36] LABS: Rapid Plasma Reagin Non-Reactive (NonReactive)
[2024-08-10] MEDS: ceFAZolin 2 GM/D5W 50 ML 2 GM/50 ML BAG IVPB (17:27)
--- NOTE | 2024-08-10 18:17 | P.PCNOB_ITS ---
OB - Delivery Note Procedure Delivery date: 08/10/24 Pre-op diagnosis: Breech Presentation, Previous Delivery and Other (labor) Post-op Diagnosis: Same Procedure Performed: Repeat Surgeon: Jarad Mendez MD Anesthesia type: Epidural Description of Procedure/Findings: The patient was taken the operating room.? She was prepped and draped in dorsal supine position with a leftward tilt.? This was done after spinal anesthetic was applied.? A low-transverse skin incision was made and carried down till of the f ascia with the knife.? The fascial incision was made with the knife.? The fascial incision was extended laterally with Ca scissors.? The fascia was tented upward superiorly and inferiorly the rectus muscles were dissected off bluntly.? The rectus muscles were the midline.? The preperitoneal fat and peritoneum were dissected open bluntly at the superior aspect of the rectus muscles.? The peritoneal incision was extended superior and inferior with good position of bladder.? The uterine incision was made with a scalpel down to the level of the amniotic cavity.? The amniotic cavity was entered bluntly.? The infant was delivered.? The cord was clamped and cut and the was handed off to waiting pediatric staff.? Cord bloods were obtained.? The placenta was removed manually.? The uterus was exteriorized.? The uterus was cleared of all clots, debris and membranes.? The uterus was closed in 0 Vicryl running lock fashion.? An imbricating over a was placed along the in cision line as well.? The uterus was returned to the abdomen.? The gutters were cleared of all clots and debris.? The fascia was closed with 0 Vicryl running fashion.? The subcutaneous tissue was irrigated pinpoint bleeders were cauterized.? The skin was closed with subcuticular absorbable jamar.? The skin incision line was covered with glue.? The patient tolerated the procedure well.? She has taken recovery room in stable condition.? Sponge lap and needle counts were correct x2.?
[2024-08-10] MEDS: OXYTOCIN 30 UNITS/NS 500 ML 30 UNITS/500 ML BAG 125 UNITS IV CONT (18:54)
[2024-08-10] MEDS: DEXTROSE 5%/0.45% SOD CHL 1,000 ML 125 ML IV CONT (20:30)
[2024-08-10] MEDS: ONDANSETRON INJ 4 MG/2 ML VIAL (20:42)
[2024-08-10] MEDS: ACETAMINOPHEN 325 MG TABLET 650 MG PO (22:22)
[2024-08-10] MEDS: KETOROLAC 15 MG/ML VIAL (*BKC) IV PUSH (22:23)
[2024-08-11] VITALS: BP 124/82; PULSE 88; RESP 16; TEMP 36.8; O2SAT 99
[2024-08-11] MEDS: ONDANSETRON INJ 4 MG/2 ML VIAL IV PUSH (02:30)
[2024-08-11] MEDS: LIDOCAINE 5% PATCH 1 PATCH TRANSDERM (02:36)
[2024-08-11] MEDS: ACETAMINOPHEN 325 MG TABLET 650 MG PO ×4 (04:34→22:38)
[2024-08-11] MEDS: KETOROLAC 15 MG/ML VIAL (*BKC) IV PUSH ×2 (04:35→10:37)
[2024-08-11 04:39] LABS: Basophils Percent Auto 0.3 % (0.2-1.2); Eosinophils Percent Auto 0.1 % (0-4.4); Hematocrit 31.1 % (37.0-47.0); Hemoglobin 9.9 g/dL (12.0-15.0); Immature Granulocyte Absolute 0.07 K/mm3 (0.00-0.031); Immature Granulocyte Percent A 0.5 % (0-0.5); Lymphocytes Absolute Auto 1.46 K/mm3 (0.9-3.2); Lymphocytes Percent Auto 9.7 % (18.3-44.2); Mean Corpuscular HGB Conc 31.8 g/dl (32-36); Mean Corpuscular Hemoglobin 26.3 pg (26-34); Mean Corpuscular Volume 82.7 fl (80-100); Mean Platelet Volume 10.7 fl (7.4-10.4); Monocytes Absolute Auto 0.4 K/mm3 (0.1-0.6); Monocytes Percent Auto 2.8 % (2.6-8.5); Neutrophils Percent Auto 86.6 % (45.5-73.1); Platelet Count Result 190 k/mm3 (150-375); Red Blood Count 3.76 M/mm3 (4.2-5.4); Red Cell Distribution Width 13.8 % (11.5-14.5)
--- NOTE | 2024-08-11 08:27 | P.PNOB_ITS ---
OB - PN: Subj Subjective Date/time seen: 08/11/24 08:27 Patient comments: no complaints, pain well controlled, tolerating diet and flatus present OB - PN: Obj Data Labs 08/11/24 03:58 Labs: Laboratory Results - last 24 hr 08/10/24 08/10/24 08/11/24 12:15 12:19 03:58 WBC 14.6 H 15.0 H RBC 4.45 3.76 L Hgb 11.5 L 9.9 L Hct 37.1 31.1 L MCV 83.4 82.7 MCH 25.8 L 26.3 MCHC 31.0 L 31.8 L RDW 13.8 13.8 Plt Count 257 D 190 MPV 11.2 H 10.7 H Immature Gran % (Auto) 0.8 H 0.5 Neut % (Auto) 82.8 H 86.6 H Lymph % (Auto) 13.3 L 9.7 L [place] % (Auto) 2.7 2.8 Eos % (Auto) 0.1 0.1 Baso % (Auto) 0.3 0.3 Lymph # (Auto) 1.95 1.46 [place] # (Auto) 0.4 0.4 Eos # (Auto) 0.0 0.0 Baso # (Auto) 0.1 0.0 Abs Immat Gran (auto) 0.11 H 0.07 H Absolute Neuts (auto) 12.1 H 13.0 H Absolute Nucleated RBC 0.000 0.000 Nucleated RBC % 0.0 0.0 Urine Color Dark yellow Urine Appearance Cloudy H Urine pH 5.5 Ur Specific [place] 1.028 Urine Protein Trace Urine Glucose (UA) Negative Urine Ketones Trace H Ur Blood (Man) 3+ H Urine Nitrate Negative Urine Bilirubin Negative Urine Urobilinogen 1.0 Add Ur Microanalysis Reviewed Leukocyte Esterase Rfl 1+ H Urine RBC 0-2 Urine WBC 11-20 H Ur Squamous Epith Cells Moderate Urine Bacteria 1+ H Urine Casts 3-5 RPR Non-reactive HIV 1&2 Ab/P24 Ag 4thGn Negative Blood Type O Positive Antibody Screen Negative OB - PN A/P Plan day: 1 Comments: Post Op LTCS - no problems, routine recovery Time Spent With Patient Time: Total time spent is greater than 50% in coordination of care (as documented) at patient's floor/unit and/or counseling patient: Exam Const: General: cooperative, healthy appearing, comfortable and no acute distress Resp: Auscultation: no crackles, no rales, no rhonchi and no wheezes Cardio: Rhythm: regular rhythm Heart sounds: no click and no murmurs GI: Inspection: non-distended Auscultation: normal bowel sounds Extrem: General: normal to inspection, no pedal edema and no calf tenderness
[2024-08-11 08:45] VITALS: BP 98/50; PULSE 64; RESP 16; TEMP 36.4; O2SAT 99
[2024-08-11] MEDS: SIMETHICONE 80 MG TAB.CHEW PO ×3 (09:43→16:20)
[2024-08-11] MEDS: POLYSACCHARIDE IRON COMPLEX 150 MG CAPSULE PO ×2 (09:43→16:20)
[2024-08-11] MEDS: DOCUSATE SODIUM 100 MG CAPSULE PO ×2 (09:43→16:20)
--- NOTE | 2024-08-11 10:37 | WPDANLDPN2 ---
Anes-Prog Note L&D Date/Time: 08/11/24 10:37 Comfortable throughout: labor and section Neuraxial method: epidural Epidural/Spinal procedure site: clean & non-tender Neuro status: Neuro function grossly intact. Cardiovascular status: normal Respiratory status: normal Airway patency: baseline Mental status: baseline Post-Op hydration status: normal Vital Signs: Last Vital Signs Temp 98.2 F 08/11/24 00:00 Pulse 88 08/11/24 00:00 Resp 16 08/11/24 00:00 BP 124/82 08/11/24 00:00 Pulse Ox 99 08/11/24 00:00 O2 Del Method Room Air 08/10/24 20:15 Pain score (VAS): 2 I/O: Intake & Output 08/10/24 08/11/24 08/11/24 23:59 07:59 15:59 Intake Total 2070 400 Output Total 310 1400 Balance 1760 -1000 Post-procedural complaints: none Patient feedback: Patient satisfied with anesthetic care.
--- NOTE | 2024-08-11 10:37 | WPDANLDNPN2 ---
Anes-Prog Note L&D-Neuraxial Date/Time: 08/11/24 10:37 Neuraxial medications: epidural PF morphine Opiod-related complaints: none Patient feedback: Patient satisfied with post-operative pain management.
[2024-08-11 12:25] VITALS: BP 119/54; PULSE 56; RESP 16; TEMP 36.4; O2SAT 100
[2024-08-11] MEDS: HYDROcodone/acetaminophen (*CRX) 5-325 MG TABLET 1 TAB PO (14:31)
[2024-08-11 16:20] VITALS: BP 102/54; PULSE 61; RESP 16; TEMP 36.4; O2SAT 100
[2024-08-11] MEDS: IBUPROFEN 600 MG TABLET PO ×2 (16:20→22:38)
[2024-08-11 20:45] VITALS: BP 119/62; PULSE 80; RESP 16; TEMP 36.8
[2024-08-12 00:15] VITALS: BP 119/70; PULSE 84; RESP 16; TEMP 36.8
[2024-08-12] MEDS: IBUPROFEN 600 MG TABLET PO ×3 (04:32→16:55)
[2024-08-12] MEDS: ACETAMINOPHEN 325 MG TABLET 650 MG PO ×3 (04:32→16:55)
[2024-08-12 07:54] VITALS: BP 104/68; PULSE 62; RESP 16; TEMP 36.8; O2SAT 100
[2024-08-12] MEDS: DOCUSATE SODIUM 100 MG CAPSULE PO ×2 (08:13→16:55)
[2024-08-12] MEDS: SIMETHICONE 80 MG TAB.CHEW PO ×2 (08:13→16:56)
[2024-08-12] MEDS: POLYSACCHARIDE IRON COMPLEX 150 MG CAPSULE PO ×2 (08:13→16:56)
--- NOTE | 2024-08-12 10:28 | PM.OBPNVD ---
OB - PN: Subj Subjective Date/time seen: 08/12/24 10:28 Patient comments: no complaints, pain well controlled, incisional pain, tolerating diet and flatus present OB - PN: Obj Data Labs 08/11/24 03:58 OB - PN A/P Plan day: 2 Plan: routine care Comments: POD#2 LTCS - no problems, Time Spent With Patient Time: Total time spent is greater than 50% in coordination of care (as documented) at patient's floor/unit and/or counseling patient: Exam Const: General: comfortable, no acute distress and alert Resp: Effort & Inspection: normal respiratory effort Auscultation: no crackles, no rales and no rhonchi Cardio: Rate: regular rate Heart sounds: no click, no murmurs and no rubs GI: Inspection: non-distended Auscultation: normal bowel sounds Other: Incision - CDI Extrem: General: normal to inspection, no pedal edema and no calf tenderness
[2024-08-12] MEDS: HYDROCORTISONE 1% 30 GM CREAM 1 APPLIC TOPICAL (11:17)
--- NOTE | 2024-08-12 12:42 | PCCCNOTE ---
Received referral due to pt. refusing to answer [facility]Do[facility] questions on admission. Spoke with pt. by phone. Pt. denies any issues related to SDoH. She reports that she lives in her own apartment and father of baby lives there with her. She denies any issues with paying rent, or utilities. She reports that she has reliable transportation. Pt. reports that she has supportive family. She reports being current with WIC. Pt. denies any needs at this time. Nursing to notify Care Coordination if any other concerns or needs arise.
[2024-08-12 20:40] VITALS: BP 114/66; PULSE 56; RESP 16; TEMP 36.9; O2SAT 99
[2024-08-13] MEDS: ACETAMINOPHEN 325 MG TABLET 650 MG PO ×3 (00:14→12:09)
[2024-08-13] MEDS: IBUPROFEN 600 MG TABLET PO ×3 (00:14→12:09)
[2024-08-13 07:35] VITALS: BP 126/74; PULSE 54; RESP 16; TEMP 36.6; O2SAT 100
--- NOTE | 2024-08-13 08:33 | PM.OBPNVD ---
OB - PN: Subj Subjective Date/time seen: 08/13/24 08:33 Patient comments: no complaints, pain well controlled, incisional pain, tolerating diet and flatus present OB - PN: Obj Data Labs 08/11/24 03:58 OB - PN A/P Plan day: 3 Plan: routine care, discharge home and other Comments: Incision check in one week. Given precautions Time Spent With Patient Time: Total time spent is greater than 50% in coordination of care (as documented) at patient's floor/unit and/or counseling patient: Exam Const: General: comfortable, no acute distress and alert Resp: Effort & Inspection: normal respiratory effort Auscultation: no crackles, no rales and no rhonchi Cardio: Rate: regular rate Heart sounds: no click, no murmurs and no rubs GI: Inspection: non-distended GI Palp: No Tenderness to palpation present (GI) Auscultation: normal bowel sounds Other: Incision - CDI Extrem: General: normal to inspection, no pedal edema and no calf tenderness
--- NOTE | 2024-08-13 08:33 | PM.OBDSVD ---
DS: Admitting Diagnosis Discharge Date August 13, 2024 Admitting Diagnosis term DS: Discharge Diagnosis Discharge Diagnosis (1) delivery delivered: Code(s): O82 - Encounter for delivery without indication Status: Acute OB - DS: Summary OB Procedures : None OB Procedures Intrapartum: OB Procedures: : None Peripartum Data Procedures: Procedures Operation Date: 08/10/24 15:30 Actual Procedure Side Surgeon p Section Not Applicable Jarad Mendez MD Time Spent with Patient Time attestation: Total time spent providing and/or coordinating discharge services: Discharge Plan Discharge Discharging Clinician: Jarad Mendez Patient Disposition: Home, Self-Care Activity: pelvic rest Diet: regular Patient Instructions: Antibiotic Form Stand Alone Forms: General Discharge Information Follow-up/Referrals: Jarad Mendez MD [Physician] - Discharge Medications: New oxycodone-acetaminophen 5-325 mg tablet 1 tablet PO Q4H PRN (Reason: pain) Qty: 25 0RF Continued prenat.vits,ester,kua-exog-hhemn Tablet 1 tablet PO DAILY Date of admission: 08/10/24 14:31 Primary Care Provider: Mary KayHarleen Admitting Provider: Jarad Mendez Attending physician on admission: Jarad Mendez Condition: Stable
[2024-08-13] MEDS: SIMETHICONE 80 MG TAB.CHEW PO ×3 (09:53→12:09)
[2024-08-13] MEDS: DOCUSATE SODIUM 100 MG CAPSULE PO (09:53)
[2024-08-13] MEDS: POLYSACCHARIDE IRON COMPLEX 150 MG CAPSULE PO (09:53)
[2024-08-14 13:36] VITALS: BP 125/73; PULSE 52; RESP 18; TEMP 36.8; O2SAT 100
== END 2024-08-13 15:15 | disposition home or self-care (01) | DRG 540 ==
LOC: ANHLDR 18:02 → ANHOB2 20:32
PROVIDERS: Admitting Provider Obstetrics & Gynecology; PCP Nurse Practitioner Family; Visit Provider Obstetrics & Gynecology
PROC: 10D00Z1 Extraction of Products of Conception, Low, Open Approach (ICD-10-PCS; CPT 59514; principal; 2024-08-10 15:30)
DX: O34.219 Maternal care for unspecified type scar from previous cesarean delivery (principal); O32.8XX0 Maternal care for other malpresentation of fetus, not applicable or unspecified; Z3A.38 38 weeks gestation of pregnancy; Z37.0 Single live birth
CPT/HCPCS: 36415; 81001; 85025; 86592; 86703; 86850; 86900; 86901; 87086; A9270; G0378; G0379; G0432; J0456; J0690; J1885; J2274; J2405; J2590; J2795; J7120